=== PATIENT | male | born 1965 | race Caucasian/White ===

== ENCOUNTER 2025-05-22 11:46 | Emergency (ER) | payer OTHER ==
[~2025-05-22] VITALS: Ht 170.2 cm; Wt 80.0 kg
[2025-05-22 11:48] VITALS: O2SAT 98
[2025-05-22] MEDS ORDERED: LIDOCAINE HCL/EPINEPHRINE 1%-EPI 1:100,000 10ML VIAL INFIL ONE (12:00)
[2025-05-22] MEDS: LEVETIRACETAM 500MG PREMIX 100 ML IV ONE (12:16)
[2025-05-22] MEDS ORDERED: TRANEXAMIC ACID 1,000MG/10ML IV ONE ×2 (13:00)
[2025-05-22 13:06] LABS: BASOPHILS % 0.4 % (0.0-2.0); EOSINOPHILS % 0.8 % (0.0-5.0); HEMATOCRIT. 41.3 % (42.0-52.0); HEMOGLOBIN. 13.5 g/dL (14.0-18.0); LYMPHOCYTES % 21.6 % (20.0-50.0); MEAN PLATELET VOLUME 8.8 fl (7.4-10.4); MONOCYTES % 5.4 % (2.0-8.0); NEUTROPHILS % 71.8 % (40.0-76.0); PLATELET 256 x1000/uL (130-400); RED BLOOD CELL COUNT 4.82 mill/uL (4.7-6.1); RED CELL DISTRIBUTION WIDTH 15.3 % (11.6-14.6)
[2025-05-22 13:18] LABS: INR 1.0
[2025-05-22 13:23] LABS: CREATININE 0.8 mg/dL (0.6-1.3); TROPONIN I HIGH SENSITIVITY < 4 ng/L (3.0-53); UREA NITROGEN BLOOD 11 mg/dL (9-23)
[2025-05-22 13:25] LABS: ASPARTATE AMINOTRANSFERASE 19 IU/L (<34); BILIRUBIN TOTAL 0.5 mg/dL (0.1-1.0); PROTEIN TOTAL 6.8 g/dL (6.0-8.3)
[2025-05-22] MEDS: TRANEXAMIC ACID 1000MG PREMIX 100 ML IV SCH ×2 (13:43→13:44)
[2025-05-22] MEDS ORDERED: LORAZEPAM 2MG/ML UD SYRINGE ONE (16:12)
[2025-05-22] MEDS: LORAZEPAM 2MG/ML UD SYRINGE IV NR (16:25)
[2025-05-22] MEDS ORDERED: LEVETIRACETAM 500MG PREMIX 100 ML IV ONE (16:30)
[2025-05-22 17:00] VITALS: BP 130/90; PULSE 99; RESP 15; TEMP 37.1; O2SAT 98
[2025-05-22] MEDS: LEVETIRACETAM 1500MG PREMIX 100 ML IV NR (17:02)
== END 2025-05-22 17:34 | disposition short-term general hospital (02) ==
LOC: ER 13:18
DX: I62.9 Nontraumatic intracranial hemorrhage, unspecified (principal); R56.9 Unspecified convulsions; R25.1 Tremor, unspecified; W18.39XA Other fall on same level, initial encounter; Y93.89 Activity, other specified; Y92.89 Other specified places as the place of occurrence of the external cause; Y99.8 Other external cause status
CPT/HCPCS: 99285; 70450; 96365; 96367; 71045; 96375; 80053; 82962; 83735; 85025; 85610; 85730; 84484; 36415; 72125; 93005; J1953; J2060